=== PATIENT | female | born 2005 | race Caucasian/White ===

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

== ENCOUNTER → 2025-03-13 | Outpatient (CLI) | payer OTHER ==
[2025-03-13 17:00] LABS: BASOPHILS ABSOLUTE AUTO 0.05 K/mm3 (0.00-0.23); BASOPHILS PERCENT AUTO 1 % (0-2); EOSINOPHILS PERCENT AUTO 0 % (0-6); Hematocrit 38.7 % (33.0-51.0); Hemoglobin 13.1 g/dL (11.5-16.0); IMMATURE GRAN ABSOLUTE AUTO 0.06 K/mm3 (0.00-0.10); IMMATURE GRAN PERCENT AUTO 1 % (0-1); LYMPHOCYTES ABSOLUTE AUTO 2.63 K/mm3 (0.84-5.20); LYMPHOCYTES PERCENT AUTO 36 % (21-46); MONOCYTES ABSOLUTE AUTO 0.42 K/mm3 (0.16-1.47); MONOCYTES PERCENT AUTO 6 % (4-13); Mean Corpuscular HGB 29.6 pg (26.0-34.0); Mean Corpuscular HGB Conc 33.9 g/dL (31.5-36.5); Mean Corpuscular Volume 88 fL (80-100); Mean Platelet Volume 11.3 fL (9.1-12.4); NEUTROPHILS ABSOLUTE AUTO 4.19 K/mm3 (1.96-9.15); NEUTROPHILS PERCENT AUTO 57 % (41-73); Platelet Count 243 K/mm3 (150-400); RDW Standard Deviation 45.1 fL (35.1-46.3); Red Blood Cell Count 4.42 M/mm3 (3.80-5.20); White Blood Cell Count 7.35 K/mm3 (4.00-11.30)
[2025-03-13 17:15] LABS: Albumin, Blood 4.7 g/dL (3.4-5.0); Albumin/Globulin Ratio 1.5 (0.8-1.8); Bilirubin, Total 0.5 mg/dL (0.1-1.0); Bun/Creatinine Ratio 7.4 (12.0-20.0); Creatinine, Blood 0.68 mg/dL (0.40-1.00); Globulin, Blood 3.2 g/dL (2.2-4.0); Potassium, Blood 3.2 mmol/L (3.5-5.5); Total Protein, Blood 7.9 g/dL (6.4-8.2)
[2025-03-13 18:48] LABS: Progesterone 11.7 ng/mL
== END | disposition home or self-care (01) ==
LOC: LAB 16:54 → LAB SHORT 16:54
PROVIDERS: Chiropractor
DX: O20.9 Hemorrhage in early pregnancy, unspecified (principal); Z3A.00 Weeks of gestation of pregnancy not specified
CPT/HCPCS: 80053; 84144; 84702; 85025; 86850; 86900; 86901

== ENCOUNTER → 2025-03-15 | Outpatient (CLI) | payer OTHER | LOC: LAB 11:36 → LAB SHORT 11:36 | DX: Z34.91 Encounter for supervision of normal pregnancy, unspecified, first trimester (principal) | CPT/HCPCS: 84702 ==

== ENCOUNTER → 2025-03-18 | Outpatient (CLI) | payer OTHER | LOC: LAB 16:34 → LAB SHORT 16:34 | DX: O20.9 Hemorrhage in early pregnancy, unspecified (principal) | CPT/HCPCS: 84702 ==

== ENCOUNTER → 2025-05-28 | Outpatient (CLI) | payer OTHER ==
[2025-05-28 10:46] LABS: Source, Urine Clean Catch
[2025-05-28 13:29] LABS: Bilirubin, Urine Neg (Neg); Glucose Qualitative, Urine Neg (Neg); Ketones, Urine Neg (Neg); Leukocyte Esterase, Urine Neg (Neg); Protein, Urine Neg (Neg); Specific Gravity, Urine 1.010 (1.003-1.022); Urobilinogen, Urine NORM (Normal)
[2025-05-28 13:40] LABS: Color, Urine Pale Yellow (P-Yellow)
[2025-05-28 15:10] LABS: Candida glabrata-krusei, PCR NOT DETECTED (NOT DETECT)
[2025-05-28 15:11] LABS: Bacterial Vaginosis PCR Positive (NEGATIVE); Candida Group, PCR DETECTED (NOT DETECT)
== END | disposition home or self-care (01) ==
LOC: LAB 10:44 → LAB SHORT 10:44
PROVIDERS: Advanced Practice Midwife
DX: N76.0 Acute vaginitis (principal); R30.0 Dysuria
CPT/HCPCS: 81003; 81515

== ENCOUNTER → 2025-08-29 | Outpatient (CLI) | payer OTHER ==
[2025-08-29 18:54] LABS: Hematocrit 31.2 % (33.0-51.0); Hemoglobin 10.6 g/dL (11.5-16.0); Mean Corpuscular HGB Conc 34.0 g/dL (31.5-36.5); Mean Corpuscular Volume 90 fL (80-100); NRBC ABSOLUTE 0.00 K/mm3 (0.00-0.02); NRBC Auto 0.0 /100 WBC (0.0-0.2); Platelet Count 258 K/mm3 (150-400); RDW Coefficient Variation 13.2 % (11.7-14.2); RDW Standard Deviation 43.6 fL (35.1-46.3)
[2025-08-29 19:14] LABS: BAND PERCENT MAN 1 % (0-8); BASOPHILS ABSOLUTE MAN 0.00 K/mm3 (0.00-0.23); BASOPHILS PERCENT MAN 0 % (0-2); EOSINOPHILS ABSOLUTE MAN 0.00 K/mm3 (0.00-0.68); EOSINOPHILS PERCENT MAN 0 % (0-6); LYMPHOCYTES ABSOLUTE MAN 1.86 K/mm3 (0.84-5.20); LYMPHOCYTES PERCENT MAN 13 % (21-46); MONOCYTES ABSOLUTE MAN 0.71 K/mm3 (0.16-1.47); MONOCYTES PERCENT MAN 5 % (4-13); MYELOCYTE ABSOLUTE MAN 0.28 K/mm3 (0.00-0.00); MYELOCYTE PERCENT MAN 2 % (0-0); NEUTROPHILS ABSOLUTE MAN 11.44 K/mm3 (1.96-9.15); SEG NEUTROPHILS PERCENT MAN 79 % (41-73)
== END | disposition home or self-care (01) ==
LOC: LAB SHORT 18:05 → LAB 18:05
PROVIDERS: Obstetrics & Gynecology
DX: O09.93 Supervision of high risk pregnancy, unspecified, third trimester (principal)
CPT/HCPCS: 82950; 85025; 86592

== ENCOUNTER → 2025-10-14 | Outpatient (CLI) | payer OTHER | LOC: LAB 10:01 → LAB SHORT 10:01 | DX: O09.93 Supervision of high risk pregnancy, unspecified, third trimester (principal) | CPT/HCPCS: 87081; 87150 ==

== ENCOUNTER 2025-11-24 18:36 | Inpatient (IN) | payer OTHER ==
[~2025-11-24] VITALS: Ht 157.5 cm; Wt 94.5 kg
[~2025-11-24 18:36] MED LIST changes: +Carboprost Tromethamine 250 MCG/ML 1ML Amp IM ONE; +Methylergonovine Maleate 0.2MG / ML 1ML Amp IV ONE; +PRENATAL TABLE1 EAC2 PO
[2025-11-24] MEDS ORDERED: Methylergonovine Maleate 0.2MG / ML 1ML Amp IM PRN (20:55)
[2025-11-24] MEDS ORDERED: FentaNYL 2mcg/ml-Bup 0.1% Epd 250 ML EPI PRN (20:55)
[2025-11-24] MEDS ORDERED: Tranexamic Acid 100 ML IV SCH (20:55)
[2025-11-24] MEDS ORDERED: ePHEDrine Sulfate 50 MG/ML 1ML Injection XX PRN (20:55)
[2025-11-24] MEDS ORDERED: Ondansetron HCl 2 MG / ML 2ML Vial IV PRN (20:55)
[2025-11-24] MEDS ORDERED: Carboprost Tromethamine 250 MCG/ML 1ML Amp IM PRN (20:55)
[2025-11-24] MEDS ORDERED: OXYTOCIN/RINGER'S LACTATE 500 ML IV PRN (20:55)
[2025-11-24] MEDS ORDERED: Oxytocin 10 Unit / ML Vial IM PRN (20:55)
[2025-11-24] MEDS ORDERED: FentaNYL Citrate 50 MCG/ML 2 ML Injection IV PRN (21:00)
[2025-11-24 22:08] VITALS: BP 151/101
[2025-11-24 22:09] VITALS: BP 132/78
[2025-11-24 22:39] LABS: BASOPHILS ABSOLUTE AUTO 0.11 K/mm3 (0.00-0.23); BASOPHILS PERCENT AUTO 1 % (0-2); EOSINOPHILS ABSOLUTE AUTO 0.01 K/mm3 (0.00-0.68); EOSINOPHILS PERCENT AUTO 0 % (0-6); Hematocrit 35.2 % (33.0-51.0); Hemoglobin 12.0 g/dL (11.5-16.0); IMMATURE GRAN ABSOLUTE AUTO 0.64 K/mm3 (0.00-0.10); IMMATURE GRAN PERCENT AUTO 4 % (0-1); LYMPHOCYTES ABSOLUTE AUTO 2.32 K/mm3 (0.84-5.20); LYMPHOCYTES PERCENT AUTO 15 % (21-46); MONOCYTES ABSOLUTE AUTO 0.96 K/mm3 (0.16-1.47); MONOCYTES PERCENT AUTO 6 % (4-13); Mean Corpuscular HGB Conc 34.1 g/dL (31.5-36.5); Mean Corpuscular Volume 88 fL (80-100); NEUTROPHILS ABSOLUTE AUTO 11.73 K/mm3 (1.96-9.15); NEUTROPHILS PERCENT AUTO 74 % (41-73); NRBC ABSOLUTE 0.00 K/mm3 (0.00-0.02); NRBC Auto 0.0 /100 WBC (0.0-0.2); Platelet Count 256 K/mm3 (150-400); RDW Coefficient Variation 14.2 % (11.7-14.2); RDW Standard Deviation 45.6 fL (35.1-46.3)
[2025-11-24 23:05] VITALS: BP 133/84
[2025-11-24 23:35] VITALS: BP 130/77
[2025-11-25] VITALS (17 sets, daily range): BP systolic 110–151; BP diastolic 57–90
[2025-11-25] MEDS ORDERED: OXYTOCIN/RINGER'S LACTATE 500 ML IV SCH (05:35)
--- NOTE | 2025-11-25 08:59 | NUR ---
Upon hearing of the request of family for spiritual care, I first visited with the patient's, SO's parents in the [facility] waiting area. They are tearful and frustrated. I provided therapeutic listening, gentle tour counselor and prayer. They responded well and showed signs of being comforted. After I concluded the prayer, the patient and her SO, Vance, come to the waiting room on their way to go outside for a walk. I provided warm encouragement and prayer for their emotional pain and for what is still to come for them in this day. They responded well and voiced appreciation. I will continue to remain avaialble to the patient and family.
--- NOTE | 2025-11-25 19:25 | NUR ---
plan of care; discussed plan of care with ana maria. per ana maria cooks balloon is to be removed at 0000 if it does not fall out sooner. pitocin to be started at 2mu once ballon is out. pitocin to be titrated by 2mu every 30 minutes as able per policy and pts contraction pattern. toco to be placed with the start of pitocin. discussed trend of pts blood pressures throughout the day, pt has significant edema to BLLE, but is not symptomatic of hypertension. ana maria to review pts blood pressures and evaluate if pt needs to start medication for her blood pressure.
--- NOTE | 2025-11-25 20:15 | NUR ---
ana maria has reviewed pts blood pressures, no new orders at this time.
[2025-11-26] VITALS (45 sets, daily range): BP systolic 106–152; BP diastolic 55–95
--- NOTE | 2025-11-26 13:09 | NUR ---
Spiritual care visit conducted in the waiting room of the [facility]. The patient family is present with the fiance coming back and forth between the patient room and the waiting room. I listen empathically as the stroy of events and the pain of the situation further unfolds as they go through another night of living in the grief while having a slow moving and painful delivery process. I provided gentle pediatric genetic counselor and prayer. The family appear comforted. I will remain available.
[2025-11-26] MEDS ORDERED: Methylergonovine Maleate 0.2MG / ML 1ML Amp IM PRN (14:25)
[2025-11-26] MEDS ORDERED: Witch Hazel/Glycerin PADS TOP PRN (14:25)
[2025-11-26] MEDS ORDERED: FLU VACC TS2025-26(6MOS UP)/PF 45 MCG/0.5 ML SYRINGE IM SCH (14:30)
[2025-11-26] MEDS ORDERED: Carboprost Tromethamine 250 MCG/ML 1ML Amp IM PRN (14:30)
[2025-11-26] MEDS ORDERED: Polyethylene Glycol 3350 17 gm PO PRN (14:30)
[2025-11-26] MEDS ORDERED: Benzocaine Topical Anesthetic Spray 60GM TOP PRN (14:30)
[2025-11-26] MEDS ORDERED: OXYTOCIN/RINGER'S LACTATE 500 ML IV SCH (14:30)
--- NOTE | 2025-11-26 17:19 | NUR ---
Another visit with the patient's in laws in the waiting room assisting with theological questions and offering support. They show signs of being comforted.
[2025-11-26] MEDS ORDERED: Ketorolac Tromethamine 30mg Vial IV SCH (18:00)
--- NOTE | 2025-11-27 01:07 | NUR ---
THIS RN ASSUMED CARE OF PT AT 0031, REPORT FROM MOISES Fisher RN. PT HOLDING NB IN BED, RESTING WITH S.O. AT SIDE. PT INTERACTING AND CONVERSING WITH NURSE. DENIES ANY NEEDS AT THIS TIME, CALL LIGHT IN REACH.
[2025-11-27 06:33] LABS: BASOPHILS ABSOLUTE AUTO 0.09 K/mm3 (0.00-0.23); BASOPHILS PERCENT AUTO 0 % (0-2); EOSINOPHILS ABSOLUTE AUTO 0.03 K/mm3 (0.00-0.68); EOSINOPHILS PERCENT AUTO 0 % (0-6); Hematocrit 32.8 % (33.0-51.0); Hemoglobin 11.4 g/dL (11.5-16.0); IMMATURE GRAN ABSOLUTE AUTO 0.48 K/mm3 (0.00-0.10); IMMATURE GRAN PERCENT AUTO 2 % (0-1); LYMPHOCYTES ABSOLUTE AUTO 2.44 K/mm3 (0.84-5.20); LYMPHOCYTES PERCENT AUTO 11 % (21-46); MONOCYTES ABSOLUTE AUTO 1.48 K/mm3 (0.16-1.47); MONOCYTES PERCENT AUTO 7 % (4-13); Mean Corpuscular HGB Conc 34.8 g/dL (31.5-36.5); Mean Corpuscular Volume 87 fL (80-100); NEUTROPHILS ABSOLUTE AUTO 17.18 K/mm3 (1.96-9.15); NEUTROPHILS PERCENT AUTO 79 % (41-73); NRBC ABSOLUTE 0.00 K/mm3 (0.00-0.02); NRBC Auto 0.0 /100 WBC (0.0-0.2); Platelet Count 228 K/mm3 (150-400); RDW Coefficient Variation 14.2 % (11.7-14.2); RDW Standard Deviation 45.2 fL (35.1-46.3)
[2025-11-27] MEDS ORDERED: IBU800 M1 PO (08:46)
[2025-11-27] MEDS ORDERED: Prenatal Vit/FE Fumarate/FA 1 Tab PO SCH (09:00)
[2025-11-27 09:42] VITALS: BP 111/56
[2025-11-27 10:47] LABS: FETAL HGB - PERCENT FETAL RBCS 0.005 % (0.000-0.124)
--- NOTE | 2025-11-27 11:20 | NUR ---
PT DECLINED A POST FOLLOW UP APPT HERE AT THE HOSPITAL. SHE HAS AN APPT SCHEDULED 11/29/[address] ACOSTA. PT WAS SEEN AND CLEARED BY LEVI FROM CARE MANAGEMENT. DARYL MELO HENRY PICKED UP THE BABY AT 1120 ON 11/27/25.
--- NOTE | 2025-11-27 14:05 | NUR ---
DISCHARGE:PT ESCORTED OUT BY [facility] AT 1043. PER PT'S REQUEST, THEIR GOODBYES WERE SAID IN [facility] WITH [facility]Y IN [facility] TO CALL [facility] AND SEND WITH [facility] AFTER PATIENT IS DISCHARGED. ALL BABIES ITEMS MAY STAY WITH BABY PER PARENTS. PARENTS KEPT HIS HAT TO TAKE HOME. PARENTS GIVEN ALL KEEPSAKES, EDUCATION MATERIALS, AND COMMUNITY RESOURCES. PT REQUESTED TO KEEP THE KEEPSAKES IN THE BOX TO TAKE HOME AND OPEN AT A LATER TIME. PER DR ACOSTA, PT DOES NOT NEED TO RETURN FOR A FOLLOW UP APPT IN [facility]. ANA PAULA WILL SEE THE PATIENT Tuesday11/29/24 AND WILL BE REACHING OUT TO SCHEDULE THIS. AT THIS APPT THEY PLAN TO DRAW LABS AND RECHECK HER WBC'S AND TO DO ANOTHER DEPRESSION SCREENING WITH PT. MAINTENANCE [employer] MET WITH PT PRIOR TO DISCHARGE TODAY FOR EPDS OF 22. AT APPROX 1130 BRYCERandi ARRIVED TO TRANSPORT BABY.
[2025-11-27 18:01] LABS: B2GLYCOPROTEIN 1, IGG ANTIBODY <10 SGU (<=20); B2GLYCOPROTEIN 1, IGM ANTIBODY <10 SMU (<=20)
[2025-11-29 11:10] LABS: ANTI-XA QUALITATIVE INTERP Not Performed (Not Present); ANTICOAG MEDICATION NEUTRALIZ Not Performed (Not Performed); DRVVT 1:1 MIX RATIO Not Performed (<=1.20); DRVVT CONFIRMATION RATIO Not Performed (<=1.20); DRVVT SCREEN RATIO 0.85 (<=1.20); HEXAGONAL PHOSPHOLIPID CONFIRM Not Performed s (<=7.9); NEUTRALIZED DRVVT SCREEN RATIO Not Performed (<=1.20); NEUTRALIZED PTT-LA RATIO Not Performed (<=1.20); PROTHROMBIN TIME (PT) 12.9 s (12.0-15.5); PTT-LA RATIO 0.86 (<=1.20); THROMBIN TIME (TT) Not Performed s (<=19.5)
== END 2025-11-27 10:40 | disposition home or self-care (01) | DRG 768 ==
LOC: OBS 18:36 → BC 18:43
PROVIDERS: Obstetrics & Gynecology; ADMIT Family Medicine
PROC: 10E0XZZ Delivery of Products of Conception, External Approach (ICD-10-PCS; principal; 2025-11-26)
PROC: 0UQK7ZZ Repair Hymen, Via Natural or Artificial Opening (ICD-10-PCS; 2025-11-26)
PROC: 3E0DXGC Introduction of Other Therapeutic Substance into Mouth and Pharynx, External Approach (ICD-10-PCS; 2025-11-26)
PROC: 0U7C7DJ Dilation of Cervix with Intraluminal Device, Temporary, Via Natural or Artificial Opening (ICD-10-PCS; 2025-11-26)
PROC: 0UQG7ZZ Repair Vagina, Via Natural or Artificial Opening (ICD-10-PCS; 2025-11-26)
PROC: 3E0R3BZ Introduction of Anesthetic Agent into Spinal Canal, Percutaneous Approach (ICD-10-PCS; 2025-11-26)
PROC: 00HU33Z Insertion of Infusion Device into Spinal Canal, Percutaneous Approach (ICD-10-PCS; 2025-11-26)
PROC: 3E02340 Introduction of Influenza Vaccine into Muscle, Percutaneous Approach (ICD-10-PCS; 2025-11-26)
DX: O36.4XX0 Maternal care for intrauterine death, not applicable or unspecified (principal); Z37.1 Single stillbirth; O71.4 Obstetric high vaginal laceration alone; O99.324 Drug use complicating childbirth; O69.81X0 Labor and delivery complicated by cord around neck, without compression, not applicable or unspecified; O48.0 Post-term pregnancy; Z3A.41 41 weeks gestation of pregnancy; O99.334 Smoking (tobacco) complicating childbirth; F17.290 Nicotine dependence, other tobacco product, uncomplicated; F12.90 Cannabis use, unspecified, uncomplicated; O99.02 Anemia complicating childbirth; O99.344 Other mental disorders complicating childbirth; F31.9 Bipolar disorder, unspecified; Z98.890 Other specified postprocedural states; Z79.899 Other long term (current) drug therapy; Z23 Encounter for immunization
CPT/HCPCS: 36415; 76815; 85025; 86146; 86147; 86356; 86592; 86850; 86900; 86901; 86923; A9270; J1720; J2210; J2405; J2590; J7120